=== PATIENT | female | born 1940 | race African-American/Black ===

== ENCOUNTER 2021-08-08 23:40 | Emergency (ER) | payer MEDICARE, MEDICAID ==
[~2021-08-08] VITALS: Ht 160 cm; Wt 81.6 kg
[2021-08-08 23:40] VITALS: BP_SYST 131
[2021-08-09 00:37] LABS: BASOPHILS # (AUTO) 0.1 K/uL (0.0-0.2); BASOPHILS % (AUTO) 0.7 % (0.0-2.0); EOSINOPHILS # (AUTO) 0.3 K/uL (0.0-0.4); EOSINOPHILS % (AUTO) 2.6 % (0.0-4.0); HEMATOCRIT 34.3 % (36-48); LYMPHOCYTES # (AUTO) 1.5 K/uL (1.0-5.5); MEAN CORPUSCULAR HEMOGLOBIN 28 pg (27-31); MEAN CORPUSCULAR HGB CONC 32 % (32-36); MEAN CORPUSCULAR VOLUME 87 fL (79.0-98.0); MONOCYTES # (AUTO) 1.1 K/uL (0.0-1.0); NEUTROPHILS # (AUTO) 6.8 K/uL (1.8-7.7); NEUTROPHILS % (AUTO) 69.7 % (40.0-70.0); PLATELET COUNT (AUTO) 232 K/uL (130-430); RED BLOOD CELL COUNT(AUTO) 3.94 MIL/uL (4.2-6.2); RED CELL DISTRIBUTION WIDTH 16.3 % (9.0-15.0); WHITE BLOOD COUNT (AUTO) 9.7 K/uL (4.8-10.8)
[2021-08-09 00:46] LABS: ANION GAP 3 (5-15); CALCIUM 7.8 mg/dL (8.4-11.0); CHLORIDE 105 mmol/L (98-107); CREATININE 0.65 mg/dL (0.55-1.30); GLUCOSE 106 mg/dL (70-99); POTASSIUM 4.5 mmol/L (3.5-5.1); SODIUM SERUM 138 mmol/L (136-145); UREA NITROGEN, BLOOD 24 mg/dL (8-21)
[2021-08-09 00:55] LABS: ALANINE AMINOTRANSFERASE 53 U/L (12-78); ALBUMIN 2.4 g/dL (3.4-4.8); ASPARTATE AMINOTRANSFERASE 28 U/L (10-37)
[2021-08-09 00:56] LABS: TOTAL BILIRUBIN < 0.1 mg/dL (0.0-1.0)
[2021-08-09] MEDS ORDERED: VANCOMYCIN HCL 1,000 MG in NS 250 ML IV ONE (01:45)
[2021-08-09] MEDS ORDERED: CEFEPIME 1 GM in D5W 50 ML IV ONE (01:45)
[2021-08-09] MEDS ORDERED: ACET-73 PO (01:55)
[2021-08-09] MEDS ORDERED: IPRA3AMP9 INH ×2 (01:57)
[2021-08-09] MEDS ORDERED: AMLO5TAB4 PO (01:58)
[2021-08-09] MEDS ORDERED: BISA10SU61 RC (02:05)
[2021-08-09 02:06] LABS: BILIRUBIN,URINE NEGATIVE (NEGATIVE); BLOOD, URINE NEGATIVE (NEGATIVE); CLARITY/URINE CLEAR (CLEAR); COLOR,URINE YELLOW (YELLOW); GLUCOSE,URINE NEGATIVE (NEGATIVE); KETONES,URINE NEGATIVE (NEGATIVE); LEUKOCYTE ESTERASE ,URINE NEGATIVE (NEGATIVE); NITRITE, URINE NEGATIVE (NEGATIVE); PROTEIN URINE NEGATIVE (NEGATIVE); UROBILINOGEN,URINE 0.2 (0.2-1.0)
[2021-08-09] MEDS ORDERED: BUDE0.5A4 NEB (02:06)
[2021-08-09] MEDS ORDERED: CARB200T PO ×2 (02:07→02:24)
[2021-08-09 02:10] LABS: BARBITURATE, URINE NEGATIVE (NEG <=200); BENZODIAZEPINE, URINE NEGATIVE (NEG <=150); CANNABINOID, URINE NEGATIVE (NEG <=50); COCAINE, URINE NEGATIVE (NEG <=150); METHAMPHETAMINES SCREEN,URINE NEGATIVE (NEG <=500); OPIATE, URINE NEGATIVE (NEG <=100); PHENCYCLIDINE SCREEN,URINE NEGATIVE (NEG <=25); UR TRICYCLIC ANTIDEPRESSANTS NEGATIVE (NEG <=300); URINE AMPHETAMINE NEGATIVE (NEG <=500); URINE METHADONE NEGATIVE (NEG <=200); URINE OXYCODONE SCREEN NEGATIVE (NEG <=100); URINE PROPOXYPHENE SCREEN NEGATIVE (NEG <=300)
[2021-08-09] MEDS ORDERED: DILT5VIA IV (02:16)
[2021-08-09] MEDS ORDERED: ENAL5TAB21 PO (02:17)
[2021-08-09] MEDS ORDERED: CEFEPIME 1 GM/VIAL (MAXIPIME) ONE (02:18)
[2021-08-09] MEDS ORDERED: ENAL1SOL IVP (02:21)
[2021-08-09] MEDS ORDERED: ASPI-1393 PO (02:23)
[2021-08-09] MEDS ORDERED: ALEN70TA3 PO (02:23)
[2021-08-09] MEDS ORDERED: VITD2000 PO (02:28)
[2021-08-09] MEDS ORDERED: ENAL10TA19 PO (02:29)
[2021-08-09] MEDS ORDERED: FURO-149 PO (02:30)
[2021-08-09] MEDS ORDERED: MULT-598 PO (02:31)
[2021-08-09] MEDS ORDERED: POTA-197 PO (02:32)
[2021-08-09] MEDS ORDERED: VANCOMYCIN HCL 1000 MG/VIAL IV ONE (03:26)
[2021-08-09 06:21] VITALS: BP_SYST 141
== END 2021-08-09 06:20 | disposition short-term general hospital (02) ==
LOC: SED 23:40
DX: I65.21 Occlusion and stenosis of right carotid artery (principal); R41.82 Altered mental status, unspecified; F17.200 Nicotine dependence, unspecified, uncomplicated; Z79.899 Other long term (current) drug therapy; Z20.822 Contact with and (suspected) exposure to COVID-19
CPT/HCPCS: 36415; 70450; 70496; 70498; 71045; 76376; 80048; 80053; 80307; 81003; 82140; 83605; 84484; 85025; 85610; 85730; 87040; 87081; 87426; 93005; 96365; 96366; 96368; 99285; J0692; J3370; Q9967